=== PATIENT | female | born 1960 | race Caucasian/White ===

== ENCOUNTER 2016-11-13 03:02 | Observation (INO) | payer OTHER ==
[~2016-11-13] VITALS: Ht 162.6 cm; Wt 85.8 kg
--- NOTE | 2016-11-13 04:11 | ED ORDER SUMMARY ---
..... Patient: OTTONIEL ADRIAN OrderSheet VisitID: [id number] [place] [address] 55y, F Registration Date/Time: 11/13/2016 ORDER SHEET Weight: 81.6 kg (stated) Allergies: Penicillins GENERAL ORDERS: Chest 1V Urgent (03:15 11/13/2016 Phil CHUNG) (Ack 3:18 Srinathekimana) (3:23 CBradburn R.N.) Machine Container Washer (Continuous) (03:15 11/13/2016 Phil CHUNG) (3:16 Luba R.N.) CBC w Diff Urgent (03:16 11/13/2016 Phil CHUNG) (3:16 Luba R.N.) CMP Urgent (03:16 11/13/2016 Phil CHUNG) (3:16 Luba R.N.) UA-Culture if indicated Urgent (03:16 11/13/2016 Phil CHUNG) (Ack 3:18 Jose Alfredoimana) (4:03 CBradburn R.N.) PT with INR Urgent (03:16 11/13/2016 Phil CHUNG) (3:16 Luba R.N.) PTT Urgent (03:16 11/13/2016 Phil CHUNG) (3:16 Luba R.N.) BNP Urgent (03:16 11/13/2016 Phil CHUNG) (3:16 Luba R.N.) D-Dimer Urgent (03:16 11/13/2016 Phil CHUNG) (3:16 Luba R.N.) Amylase Urgent (03:16 11/13/2016 Phil CHUNG) (3:16 Luba R.N.) Lipase Urgent (03:16 11/13/2016 Phil CHUNG) (3:16 Luba R.N.) CPK Urgent (03:16 11/13/2016 Phil CHUNG) (3:16 Luba R.N.) Troponin-I Urgent (03:16 11/13/2016 Phil CHUNG) (3:16 Luba R.N.) Oxygen (2 L/min) (NC) (03:16 11/13/2016 Phil CHUNG) (3:16 Luba R.N.) EKG - ER Stat (03:16 11/13/2016 Phil CHUNG) (3:17 CHategekimana) MEDICATION ORDERS: Aspirin PO 325 mg (Do not crush or chew, NOW) (03:15 11/13/2016 Phil CHUNG) (Ack 3:17 Luba R.N.) (3:19 Luba R.N.) NitroGLYCERIN Paste Topical 0.5 in. (NOW, to CW) (04:10 11/13/2016 Phil CHUNG) (Ack 4:13 Luba R.N.) (4:16 Luba R.N.) IV FLUIDS: IV Saline Lock (03:16 11/13/2016 Phil CHUNG) (3:16 Luba R.N.) ORDER SHEET NOTES: [Electronically signed by Marilynn White R.N. (05:12 11/13/2016)] [Electronically signed by Scottie Weber MD (08:19 11/13/2016)] [Electronically locked/signed by Marilynn White R.N. (05:12 11/13/2016)]
--- NOTE | 2016-11-13 04:11 | ED CLINICAL REPORT ---
Clinical Report - Physicians/Mid Levels [facility] [address] [place] [address] 11/13/2016 3:02 Patient: OTTONIEL ADRIAN Time Seen: 03:15. Arrived- By private vehicle. Historian- patient. HISTORY OF PRESENT ILLNESS Chief Complaint: CHEST PAIN. At its maximum, severity described as 3 / 10. When seen in the E.D., severity described as 1 / 10. Modifying factors. Not worsened by anything. It is described as pressure and it is described as located in the central chest area. No radiation. This started last night at about 8 PM and is still present. It was gradual in onset and has been waxing/waning. Onset during light activity. No nausea, vomiting, difficulty breathing or diaphoresis. REVIEW OF SYSTEMS No chills, fever, sweats, calf pain or difficulty breathing. No pedal edema, palpitations, abdominal pain, black stools or bloody stools. No constipation, diarrhea, nausea, vomiting or urinary problems. The patient has had a nonproductive cough (chronically). It has been similar to previous symptoms. All systems otherwise negative, except as recorded above. PAST HISTORY PCP - Constantine. Problems: Pneumonia. Immunizations. Arthritis. Ectopic . Fibromyalgia. Tremor. Additional Surgeries: Ectopic . Medications: Albuterol-Ipratropium Inhalation (Solution 0.5-2.5 (3) mg/3mL). Inderal LA Oral 60 mg. Methocarbamol Oral 500 mg, as needed. Allergies: Penicillins. SOCIAL HISTORY Current every day heavy tobacco smoker (cigarette)- less than 1 pack per day. No alcohol use or drug use. Residence: [place]. FAMILY HISTORY Family medical history is unknown due to adoption. ADDITIONAL NOTES The nursing notes have been reviewed. PHYSICAL EXAM Vital Signs: 11/13/2016 03:03 BP: 158/94. HR: 86. RR: 18. O2 saturation: 97%. Temp: 97.8 F. Pain level now: 3/10. Have been reviewed. Appearance: Alert. (tremulous). Eyes: Pupils equal, round and reactive to light. ENT: Pharynx normal. Neck: Normal inspection. Neck supple. No JVD or carotid bruit. CVS: Normal heart rate and rhythm. Heart sounds normal. Respiratory: No respiratory distress. Decreased air movement. Abdomen: Soft and nontender. Bowel sounds normal. No organomegaly. No mass. Back: Normal external inspection. No CVA tenderness. Skin: Skin warm and dry. Normal skin color. Normal skin turgor. Extremities: Extremities exhibit normal ROM. No calf tenderness. No lower extremity edema. LABS, X-RAYS, AND EKG EKG: Normal EKG. Rate: 75. Changes present when compared to prior EKG. (23 December 2013). The study has been independently viewed by me. Chest X-ray: No acute disease. The X-rays were independently viewed by me. A comparison with prior films (12/24/13 - retrocardiac infiltrate at that time.). Laboratory Tests: UA-Culture if indicated: (JIM: 11/13/2016 03:57) ( [facility] 11/13/2016 04:25) Final results Test Result Flag Units (Reference) URINE COLOR YELLOW URINE APPEARANCE CLEAR URINE GLUCOSE NEGATIVE (NEGATIVE) URINE BILIRUBIN NEGATIVE (NEGATIVE) URINE KETONE NEGATIVE (NEGATIVE) URINE SPECIFIC GRAVITY 1.020 (1.010-1.030) URINE PH 6.0 (5.0-8.0) URINE PROTEIN NEGATIVE (NEGATIVE) URINE UROBILINOGEN 0.2 EU/dL (0.2-1.0) URINE NITRITE NEGATIVE (NEGATIVE) URINE BLOOD NEGATIVE (NEGATIVE) URINE LEUK ESTERASE POSITIVE (NEGATIVE) URINE RBC NONE SEEN rbc/hpf (0-1) URINE WBC 1-3 wbc/hpf (0-1) URINE EPITHELIAL CELLS 1-3 EPI/hpf (0-5) URINE BACTERIA NONE SEEN (NONE SEEN) URINE COMMENT CULTURE INDICATED URINE CULTURES ARE SET-UP BASED ON THE FOLLOWING CRITERIA:POSITIVE NITRITEPOSITIVE LEUKOCYTE ESTERASEGREATER THAN 10 WHITE BLOOD CELLSMODERATE (2+) OR GREATER BACTERIA CBC w Diff: (JIM: 11/13/2016 03:05) ( [facility] 11/13/2016 03:24) Final results Test Result Flag Units (Reference) WHITE BLOOD COUNT 7.9 K/uL (4.5-11.5) RED BLOOD COUNT 4.90 M/uL (4.00-5.20) HEMOGLOBIN 14.3 gm/dL (12.0-16.0) HEMATOCRIT 43.2 % (36.0-46.0) MEAN CELL VOLUME 88 fL (80-100) MEAN CORPUSCULAR HGB 29 pg (26-34) MEAN CORPUSCULAR HGB CONC 33 g/dL (31-37) RED CELL DISTRIBUTION WIDTH 13.8 % (11.6-14.8) PLATELET COUNT 255 K/uL (150-400) NEUTROPHIL % 33.6 L % (50-75) LYMPH % 54.0 H % (25-40) MONO % 9.2 % (3-14) EOSINOPHIL % 2.4 % (0-4) BASOPHIL % 0.8 % (0-2) PT with INR: (JIM: 11/13/2016 03:05) ( [facility] 11/13/2016 03:32) Final results Test Result Flag Units (Reference) INR 0.9 (0.8-1.2) Low Intensity Therapy: INR 1.5-2.0 PT range 18.5-23.1Mod.Intensity Therapy: INR 2.0-3.0 PT range 23.1-31.5High Intensity Therapy: INR 2.5-3.5 PT range 27.4-35.5High Intensity Therapy 2: INR 3.0-4.0 PT range 31.5-39.3 APTT 28 SECONDS (24-34) D-DIMER QUANTITATIVE < 0.27 L ug/mLFEU (0.27-0.52) The primary value of this quantitative assay relates toits negative predictive value (i.e. exclusion) of pulmonaryembolism/deep vein thrombosis/DIC.Elevated levels of d-dimer may also occur with:, age, cancer, inflammation, liver disease,post-op, infection, hematoma, coronary disease, peripheralarteriopathy, bleeding disorders and thrombolytic treatment.Results should be correlated with other clinical andradiological data.Testing Methodology: Latex Immunoassay BNP: (JIM: 11/13/2016 03:05) ( [facility] 11/13/2016 04:02) Final results Test Result Flag Units (Reference) B-TYPE NATRIURETIC PEPTIDE 10.1 pg/ml (5-100) CMP: (JIM: 11/13/2016 03:05) ( [facility] 11/13/2016 03:46) Final results Test Result Flag Units (Reference) GLUCOSE 118 H mg/dL (70-110) BUN 15 mg/dL (7-18) CREATININE 0.8 mg/dL (0.6-1.3) Estimated GFR >60 mL/min Estimated GFR- >60 mL/min Note: Persistent reduction over 3 months in eGFR<60 mL/min/1.73 m2 defines CKD. Patients with eGFR values>=60 mL/min/1.73 m2 may also have CKD if evidence ofpersistent proteinuria. Additional information may be foundat www.kidney.org. SODIUM 142 mmol/L (136-145) POTASSIUM 3.8 mmol/L (3.5-5.1) CHLORIDE 104 mmol/L (98-107) CARBON DIOXIDE 30 mmol/L (21-32) CALCIUM 9.1 mg/dL (8.5-10.1) TOTAL PROTEIN 7.6 g/dL (6.4-8.2) ALBUMIN 3.8 g/dL (3.3-5.0) BILIRUBIN, TOTAL 0.2 mg/dL (0.0-1.0) ALKALINE PHOSPHATASE 85 U/L (46-116) AST (SGOT) 12 L U/L (15-37) ALT (SGPT) 23 U/L (12-78) LIPASE 230 U/L (73-393) AMYLASE 69 U/L (25-115) CPK 55 U/L (24-260) TROPONIN I <0.05 L ng/mL (0.00-1.5) TROPONIN REFERENCE RANGE:<0.1 NEGATIVE0.1-1.5 INDETERMINANT>1.5 POSITIVE . PROGRESS AND PROCEDURES Course of Care: Patient is stable. Discussed case with patient's primary care provider, (Constantine). Reviewed test results and need for additional work-up. Agreed upon treatment plan, need for patient follow-up and decision to place in observation. Health care provider will see patient in hospital. Patient/family counseled. Old medical records reviewed. Disposition orders written (in [facility]). Disposition: Admitted. Observation. CLINICAL IMPRESSION Chest pain. (Electronically signed by Scottie Weber MD 11/13/2016 8:19)
--- NOTE | 2016-11-13 04:11 | ED ORDER SUMMARY ---
..... Patient: OTTONIEL ADRIAN OrderSheet [facility] VisitID: [id number] [place] [address] 55y, F Registration Date/Time: 11/13/2016 ORDER SHEET Weight: 81.6 kg (stated) Allergies: Penicillins GENERAL ORDERS: Chest 1V Urgent (03:15 11/13/2016 Phil CHUNG) (Ack 3:18 Srinathekimana) (3:23 CBradburn R.N.) Ornamental Machine Operator (Continuous) (03:15 11/13/2016 Phil CHUNG) (3:16 Luba R.N.) CBC w Diff Urgent (03:16 11/13/2016 Phil CHUNG) (3:16 Luba R.N.) CMP Urgent (03:16 11/13/2016 Phil CHUNG) (3:16 Luba R.N.) UA-Culture if indicated Urgent (03:16 11/13/2016 Phil CHUNG) (Ack 3:18 Jose Alfredoimana) (4:03 CBradburn R.N.) PT with INR Urgent (03:16 11/13/2016 Phil CHUNG) (3:16 Luba R.N.) PTT Urgent (03:16 11/13/2016 Phil CHUNG) (3:16 Luba R.N.) BNP Urgent (03:16 11/13/2016 Phil CHUNG) (3:16 Luba R.N.) D-Dimer Urgent (03:16 11/13/2016 Phil CHUNG) (3:16 Luba R.N.) Amylase Urgent (03:16 11/13/2016 Phil CHUNG) (3:16 Luba R.N.) Lipase Urgent (03:16 11/13/2016 Phil CHUNG) (3:16 Luba R.N.) CPK Urgent (03:16 11/13/2016 Phil CHUNG) (3:16 Luba R.N.) Troponin-I Urgent (03:16 11/13/2016 Phil CHUNG) (3:16 Luba R.N.) Oxygen (2 L/min) (NC) (03:16 11/13/2016 Phil CHUNG) (3:16 Luba R.N.) EKG - ER Stat (03:16 11/13/2016 Phil CHUNG) (3:17 CHategekimana) MEDICATION ORDERS: Aspirin PO 325 mg (Do not crush or chew, NOW) (03:15 11/13/2016 Phil CHUNG) (Ack 3:17 Luba R.N.) (3:19 Luba R.N.) NitroGLYCERIN Paste Topical 0.5 in. (NOW, to CW) (04:10 11/13/2016 Phil CHUNG) (Ack 4:13 Luba R.N.) (4:16 Luba R.N.) IV FLUIDS: IV Saline Lock (03:16 11/13/2016 Phil CHUNG) (3:16 Luba R.N.) ORDER SHEET NOTES: [Electronically signed by Marilynn White R.N. (05:12 11/13/2016)] [Electronically signed by Scottie Weber MD (08:19 11/13/2016)] [Electronically locked/signed by Marilynn White R.N. (05:12 11/13/2016)]
--- NOTE | 2016-11-13 04:11 | ED NURSING NOTES ---
Clinical Report - Nurses [facility] [address] [place] [address] 11/13/2016 3:02 Patient: OTTONIEL ADRIAN TRIAGE Triage time 0303. Acuity: LEVEL 3. Chief Complaint: CHEST PAIN and (mid chest, non radiating). --03:14 Marilynn White R.N. 03:03 11/13/16. BP: 158/94 taken on the left arm, while lying. HR: 86 (regular, normal rate and strong). RR: 18. O2 saturation: 97% on room air. Temp: 97.8 F (oral). Pain level now: 09/27. --03:14 Marilynn White R.N. Weight: 81.6 kg stated. Height/Length: 64 inches Per Patient. BMI: 30.9. --03:08 Marilynn White R.N. Medications Methocarbamol Oral 500 mg, as needed. --03:10 Marilynn White R.N. Inderal LA Oral 60 mg. --03:11 Marilynn White R.N. Albuterol-Ipratropium Inhalation (Solution 0.5-2.5 (3) mg/3mL). --03:12 Marilynn White R.N. Allergies Penicillins. --03:10 Marilynn White R.N. History Arrived by private vehicle. Historian: patient. Accompanied by spouse. Primary physician (Constantine). This started last night. This is a new problem and onset was gradual. Symptoms still present (1999). SOCIAL HX: Light tobacco smoker (cigarette)- less than 1/2 a pack per day. No alcohol use or drug use. SELF HARM ASSESSMENT: A self harm assessment was performed. The patient answered "no" to the question "Have you recently felt down, depressed, or hopeless?", "Have you noticed less interest or pleasure in doing things?", "Do you have thoughts of harming or killing yourself?", "Are you here because you tried to hurt yourself?", "Have you ever tried to hurt yourself before today?", "Have you recently had thoughts about harming or killing others?" and "Do you have any dangerous items in your possession?". FALL RISK ASSESSMENT: Fall risk assessment completed. No fall risk identified. --03:14 Marilynn White R.N. PROBLEMS: Pneumonia. Immunizations. LNMP - Last Normal Menstrual Period. Arthritis. Ectopic . Fibromyalgia. Tremor. --03:12 Marilynn White R.N. Sepsis [RuleOut]. --03:12 Marilynn White R.N. ADDITIONAL SURGERIES: Ectopic . --03:12 Marilynn White R.N. Interventions ID band on patient. --03:14 Marilynn White R.N. PHYSICAL ASSESSMENT Ambulatory to room. GENERAL / NEURO / PSYCH: Alert. Oriented X 4. Appears in no acute distress. HEENT: Mucous membranes are pink. RESPIRATORY: Respirations not labored. Breath sounds within normal limits. CVS: Normal sinus rhythm noted. Cardiac rhythm: normal sinus rhythm; (79). Heart sounds within normal limits. Pulses within normal limits. Capillary refill less than 2 seconds. EXTREMITIES: No lower extremity edema. SKIN: Skin is warm and dry. --03:15 Marilynn White R.N. NURSING PROGRESS NOTES Two patient identifiers checked. Call light placed in reach. Side rails up x 1. Bed placed in lowest position. Brakes of bed on. --03:15 Marilynn White R.N. Patient ready for evaluation- chart flagged. --03:15 Marilynn White R.N. 03:16 11/13/2016 Site #1 started via IV in the right antecubital space with an 20g angiocath, with aseptic technique and good blood return; one attempt. Blood drawn: rainbow set. Labeled in the presence of the patient and sent to the lab. Saline lock flushed with 10 mL saline. --03:16 Marilynn White R.N. 03:19 11/13/2016 Aspirin PO Tablets 325 mg given. Allergies verified and confirmed 5 rights. --03:19 Marilynn White R.N. EKG time: (0316 AM). EKG was ordered, performed by a tech and shown to the ED physician. --03:19 Sharri Lin Patient ID band checked for patient name and birthdate: patient confirmed. Instructions provided to collect clean catch urine and patient verbalized understanding urine collected with return of yellow-colored clear urine; sample sent to lab for urinalysis. Specimen labeled in the presence of the patient. --04:03 Marilynn White R.N. 04:16 11/13/2016 NITROGLYCERIN PASTE Topical Paste 0.5 inch. Applied to the left chest. Allergies verified and confirmed 5 rights. --04:16 Marilynn White R.N. The patient reports no complaints and she is calm. Overall patient status is improved- she states feels better. RESPIRATORY: No respiratory distress. Breath sounds normal. CVS: The patient reports central chest pain is still present but improving. Normal sinus rhythm noted. SKIN: Skin is warm and dry. Skin color within normal limits. --04:54 Marilynn White R.N. 04:53 11/13/16. BP: 115/65 taken on the left arm, while lying. HR: 75. RR: 18. O2 saturation: 95% on room air. Temp: deferred. Pain level now: 07/30. --04:54 Marilynn White R.N. DISPOSITION / DISCHARGE 05:02 11/13/2016 Site #[address] upon admission; patent, no pain and no signs of infection or infiltration. Converted to saline lock and flushed with 10 mL saline; flushes easily. --05:02 Marilynn White R.N. Report was given to a nurse via a phone call. Report included patient's care, treatment, medications, reviewed medication reconcilliation, and condition (including any recent changes or anticipated changes). All questions were answered. Report was acknowledged and care was transferred. (Carl RIGGINS). Bed obtained and ready. --05:03 Marilynn White R.N. 04:59 11/13/16. BP: 119/79 taken while lying. HR: 73 (regular). RR: 18 (regular). O2 saturation: 94% on room air. Temp: deferred. Pain level now: 07/30. --05:03 Marilynn White R.N. Bed obtained (209a). --05:04 Marilynn White R.N. Departure time: 05:11. Patient's personal items include: shirt, pants, coat, socks, shoes, glasses and jewelry, cell phone with carrier operator; items were placed in belongings bag and transported with the patient. --05:11 Marilynn White R.N. Locked/Released at 11/13/2016 5:12 by Marilynn White R.N.
[2016-11-13 05:48] VITALS: BP 143/78
[2016-11-13] MEDS ORDERED: ALBUTEROL2.5 MG/3 M IN (05:51)
[2016-11-13] MEDS ORDERED: INDERAL EQUIVAL20 MG PO (05:52)
[2016-11-13] MEDS ORDERED: METHOCARBAMOL500 MG PO (05:54)
[2016-11-13 06:19] VITALS: BP 134/74
--- NOTE | 2016-11-13 08:19 | ED MAR SUMMARY ---
..... Medication Administration Record [facility] [address] [place] [address] Patient: OTTONIEL ADRIAN Visit ID: [id number] 55y, F Weight: 81.6 kg Height/Length: 64 in BMI: 30.9 ALLERGIES: Penicillins Given 03:19 11/13/2016 Marilynn White R.N. Medication Administered: ASPIRIN [PO], Dose: 325 mg Tablets PO. Medication Ordered: Aspirin PO 325 mg (Do not crush or chew, NOW). Given 04:16 11/13/2016 Marilynn White RRuthy Medication Administered: NITROGLYCERIN PASTE [TOPICAL], Dose: 0.5 in. Paste Topical. Medication Ordered: NitroGLYCERIN Paste Topical 0.5 in. (NOW, to ).
--- NOTE | 2016-11-13 08:19 | ED DISCHARGE INSTRUCTIONS ---
Patient: OTTONIEL ADRIAN General Instructions [facility] VisitID: [id number] [address] [place] [address] 55y, F Registration Date/Time: 11/13/2016 Chest pain. (Electronically signed by Scottie Weber MD 11/13/2016 8:19)
--- NOTE | 2016-11-13 08:19 | ED MAR SUMMARY ---
..... Medication Administration Record [facility] [address] [place] [address] Patient: OTTONIEL ADRIAN Visit ID: [id number] 55y, F Weight: 81.6 kg Height/Length: 64 in BMI: 30.9 ALLERGIES: Penicillins Given 03:19 11/13/2016 Marilynn White R.N. Medication Administered: ASPIRIN [PO], Dose: 325 mg Tablets PO. Medication Ordered: Aspirin PO 325 mg (Do not crush or chew, NOW). Given 04:16 11/13/2016 Marilynn White RRuthy Medication Administered: NITROGLYCERIN PASTE [TOPICAL], Dose: 0.5 in. Paste Topical. Medication Ordered: NitroGLYCERIN Paste Topical 0.5 in. (NOW, to ).
--- NOTE | 2016-11-13 08:19 | ED DISCHARGE INSTRUCTIONS ---
Patient: OTTONIEL ADRIAN General Instructions [facility] VisitID: [id number] [address] [place] [address] 55y, F Registration Date/Time: 11/13/2016 Chest pain. (Electronically signed by Scottie Weber MD 11/13/2016 8:19)
--- NOTE | 2016-11-13 08:20 | ED MED RECONCILIATION SUMMARY ---
Patient: OTTONIEL ADRIAN Medication Reconciliation Report [facility] VisitID: [id number] [place] [address] 55y, F Registration Date/Time: 11/13/2016 Weight: 81.6 kg Height/Length: 64 in. BMI: 30.9 ALLERGIES: Penicillins The patient's Home Medications are listed below: THE FOLLOWING MEDICATIONS NEED TO BE RECONCILED: Albuterol-Ipratropium Inhalation (0.5-2.5 (3) mg/3mL) Inderal LA Oral 60 mg Methocarbamol Oral 500 mg The source(s) of the original Home Medication information: Not obtained. The following Medications were given to the patient in the Emergency Department: Aspirin [PO] PO 325 mg, administered: 11/13/2016 3:19:00 AM NITROGLYCERIN PASTE [TOPICAL] Topical 0.5 in., administered: 11/13/2016 4:16:00 AM The following Medications were prescribed to the patient: None.
--- NOTE | 2016-11-13 08:20 | ED MED RECONCILIATION SUMMARY ---
Patient: OTTONIEL ADRIAN Medication Reconciliation Report [facility] VisitID: [id number] [place] [address] 55y, F Registration Date/Time: 11/13/2016 Weight: 81.6 kg Height/Length: 64 in. BMI: 30.9 ALLERGIES: Penicillins The patient's Home Medications are listed below: THE FOLLOWING MEDICATIONS NEED TO BE RECONCILED: Albuterol-Ipratropium Inhalation (0.5-2.5 (3) mg/3mL) Inderal LA Oral 60 mg Methocarbamol Oral 500 mg The source(s) of the original Home Medication information: Not obtained. The following Medications were given to the patient in the Emergency Department: Aspirin [PO] PO 325 mg, administered: 11/13/2016 3:19:00 AM NITROGLYCERIN PASTE [TOPICAL] Topical 0.5 in., administered: 11/13/2016 4:16:00 AM The following Medications were prescribed to the patient: None.
--- NOTE | 2016-11-13 09:02 | DIAGNOSTIC IMAGING REPORT ---
PROCEDURE: XR CHEST 1 VIEW INDICATION: CHEST PAIN TECHNIQUE: Portable AP view (0325 hours). COMPARISON: Compared to chest x-ray on 12/24/2013 and 12/23/2013. FINDINGS: Findings suggest a 6 mm old calcified granuloma at the left lung base. Lungs are otherwise clear. Heart and mediastinum are normal. Moderate levoscoliosis of the lumbar spine (partially visualized). Thorax is otherwise normal. IMPRESSION: 1. Findings suggest 6 mm old calcified granuloma at the left lung base. 2. Findings suggest moderate lumbar levoscoliosis. 3. Otherwise negative chest. No evidence of acute process. 4. Findings discussed with Dr. Scottie Weber.
--- NOTE | 2016-11-13 09:07 | HISTORY AND PHYSICAL ---
ADMITTED: 11/13/2016 CHIEF COMPLAINT: 1. Retrosternal chest pain HISTORY OF PRESENT ILLNESS: The patient is a 55-year-old lady who has developed retrosternal chest pain that has been fairly constant in nature. This started yesterday afternoon and has persisted through the evening. It did not seem to be affected by moving around or taking deep breaths or bending or twisting, or lying down or standing up. She did not feel lightheaded or have any major difficulties with her breathing. She went to bed, shortly after midnight and the chest pain was persisting and seemed to worsen a little bit. Her decided it would be best if she came in to make sure she was not having a heart problem, though she has not had heart problems in the past. Initial evaluation in the emergency department showed normal cardiac enzymes and a stable EKG and stable chest x-ray, and no evidence of any other major abnormality. She was admitted for serial cardiac enzymes and to consider heart stress testing. MEDICAL/SURGICAL HISTORY: Past medical history is remarkable for longstanding tremor, for which she takes propranolol. She has also had problems with COPD and mild bronchospasm related to smoking. She has had some problems with intermittent lower back pain with some radicular pain down her left leg to her left foot that is aggravated by activity at times. Past surgical history is remarkable for 6 pregnancies and 4 normal vaginal deliveries. She has had 2 ectopic pregnancies that were treated with surgical removal. She has had no other major operations. MEDICATIONS: Include: 1. Propranolol 60 mg b.i.d. for tremor. 2. Methocarbamol 500 mg 1 daily as needed for controlling tremor and muscle tightness. 3. DuoNeb vials administered by nebulizer 2 or 3 times daily. ALLERGIES: 1. INCLUDE PENICILLIN. SOCIAL HISTORY: The patient is and lives in the [facility]. 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 She does smoke about 1/2 pack per day. She does not drink alcohol or use other drugs. FAMILY HISTORY: Unknown, as patient was adopted and has never looked into her records to learn anything about her parents. REVIEW OF SYSTEMS: HEENT is okay. Respiratory is remarkable for some occasional wheezing, responding to DuoNeb treatments. Cardiovascular: As noted above. She does not have rapid heartbeats or irregular heartbeats or prior history of hypertension or heart problems. Gastrointestinal is okay, with no major heartburn issues or blood in stool or nausea, vomiting, or postprandial pain. Genitourinary: Okay, with no problems with passing urine and no vaginal bleeding or discharge. Musculoskeletal is remarkable for lower back pain at times, with some pain radiating down to her left foot at times. Skin is okay, with no new problems. Neurologic: Okay, with no focal numbness or weakness or memory problems. PHYSICAL EXAMINATION: GENERAL: Reveals the patient to be a woman appearing to be somewhat older than her stated age. VITAL SIGNS: Blood pressures in the 130-140/70 range. Oxygen saturation is in the 92-96 range on room air. Temperature is 97. Pulse rate is in the 70s. Respiratory rate is about 18. HEENT: Showing head to be normal. Ear canals and tympanic membranes are normal. Eyes show pupils equal, round, and reactive to light with flat discs and normal vessels. Nose and throat are clear. There are a number of missing teeth. NECK: Supple, without adenopathy. Carotid pulses are normal. No bruits are heard. CHEST: Reveals somewhat decreased breath sounds with I:E ratio of about 1:1 and some faint expiratory wheezes bilaterally. HEART: Reveals normal S1 and S2 with no distinct S3 or murmur. BREASTS: Show no masses. There is no axillary adenopathy. ABDOMEN: Nontender, with no organomegaly or mass. Bowel tones are normal. PELVIC AND RECTAL: Not done. EXTREMITIES: Show normal range of motion. There is no peripheral edema. Dorsalis pedis pulses are normal bilaterally. NEUROLOGIC: Reveals the patient to be alert and oriented x3. Cranial nerves are normal. Motor and sensory exams are normal. SKIN: Normal. LAB/IMAGING: Show white blood cell count 7900, hemoglobin is 16.3, hematocrit 43.2, D-dimer is less than 0.27. Sodium is 142, potassium 3.8, chloride 104, CO2 is 30 , glucose 110, BUN 15, creatinine 0.8. Total bilirubin is 0.2. SGOT is 12, SGPT is 28, alkaline phosphatase is 85, amylase is 69, lipase is 230. CPK is 55. Troponin I is less than 0.05. BNP is 10.1. Chest x-ray shows heart size to be normal. No evidence of infiltrate or mass. EKG shows a normal sinus rhythm with some nonspecific T flattening in lead III and no ST-segment elevations or depressions. IMPRESSION: 1. The patient is presenting with retrosternal chest pain, which could possibly be cardiac. She did not have a major improvement with nitroglycerin. 2. Other problems include chronic obstructive pulmonary disease with bronchospasm, which is fairly stable are most likely related to smoking. 3. She has long-standing benign tremor problems. 4. She also has lumbar pain with some radicular symptoms, which would make exercise stress testing most likely unreliable PLAN: The patient is admitted for observation. She will have cardiac enzymes repeated at around 11:30 a.m. this morning, along with an EKG. If these look okay and have not changed, she will be scheduled for a Lexiscan Cardiolite heart stress test this afternoon. Further evaluation will depend on the results of this test. I have discussed this with her, and she agrees. CODE STATUS: SHE IS A FULL CODE STATUS.
[2016-11-13 10:08] VITALS: BP 130/70
[2016-11-13 14:30] VITALS: BP 119/69
[2016-11-13 18:10] VITALS: BP 132/81
--- NOTE | 2016-11-13 18:37 | Provider's Discharge Care Plan ---
Problem, Goal, Plan Problem List 1. Chest pain Goals: Improve disease control, Improve function, Improved health/wellness, Increase independence Instructions: Follow up as directed, Increase activity level, Take meds as directed, Stop smoking, call Dr. Yu's office to schedule appt. this next week for recheck. If pain recurs and is severe call 911 and return to ER. 2. Tremor Goals: Improve disease control, Improve function, Improved health/wellness, Increase independence Instructions: Follow up as directed, Take meds as directed, Stop smoking, contoinue propranolol 60 mg twice daily and use methocarbamol 500 mg once or twice daily if needed for muscle tightness due to tremor. 3. COPD (chronic obstructive pulmonary disease) Goals: Improve disease control, Improve function, Improved health/wellness, Increase independence Instructions: Follow up as directed, Increase activity level, Take meds as directed, Stop smoking, Continue ipratropium-albuterol by nebulizer 2 or 3 times /d to improve breathing. Avoid smoking.
--- NOTE | 2016-11-14 16:59 | DIAGNOSTIC IMAGING REPORT ---
PROCEDURE: NM CARDIAC STRESS TEST INDICATION: CHEST PAIN TECHNIQUE: Single-Day Sestamibi Lexiscan portion: Please see separate dictation. COMPARISON: None. FINDINGS: 33mCi of technetium-99m labeled sestamibi was injected at rest with SPECT tomography performed. Some time later the patient underwent Lexiscan stress with 10 mCi of technetium-99m labeled sestamibi injected 20 seconds after the injection of Lexiscan with SPECT tomography performed. Rest and stress images were then compared. The LV was seen to be normal in size. The LV with stress exhibits a moderate sized area of mild ischemic of the basal 2/3 of the anterior wall. Computer assessed ejection fraction was 78% with normal contraction. IMPRESSION: 1. Abnormal myocardial perfusion with moderate sized area of mild ischemia of the basal 2/3 of the anterior wall, cannot exclude breast attenuation artifact. 2. Normal left ventricular size and systolic function, EF 78%. 3. Results suggest a moderate risk study.
== END 2016-11-13 18:55 | disposition home or self-care (01) ==
LOC: ED SRH 03:02 → ACUTE2 SRH 04:33 → TRANS SRH 04:33 → ACUTE2 SRH 05:21
PROVIDERS: ADMIT Family Medicine
PROC: 3E073KZ Introduction of Other Diagnostic Substance into Coronary Artery, Percutaneous Approach (ICD-10-PCS; principal; 2016-11-13)
PROC: 4A02XM4 Measurement of Cardiac Total Activity, External Approach (ICD-10-PCS; principal; 2016-11-13)
DX: I25.9 Chronic ischemic heart disease, unspecified (principal); J44.9 Chronic obstructive pulmonary disease, unspecified
CPT/HCPCS: 29230; 90004; 90074; 90100; 90469; 90616; 91320; 91556; 92235; 92530; 92610; 94001; 94060; 95059